=== PATIENT | female | born 1980 | race African-American/Black ===

== ENCOUNTER 2016-04-20 20:07 | Emergency (ER) | payer OTHER ==
[~2016-04-20] VITALS: Ht 162.6 cm; Wt 74.8 kg
[~2016-04-20 20:07] MED LIST: Acetaminophen/Hydrocodone Bi PO; FOLATE1 MG PO; KEFLEX250 MG PO; MOTRIN600 MG PO; MOTRIN800 MG PO; NORCO 10/325 MG1 TAB PO; OLANZAPINE5 MG PO; PRENATAL VITAMI1 T10 PO; VICODIN 5/500 M1 TAB PO; ZOFRAN ODT4 MG PO
[2016-04-20 20:48] VITALS: BP 136/70
[2016-04-20] MEDS ORDERED: ULTRAM50 MG PO (21:03)
[2016-04-20] MEDS ORDERED: NEURONTIN300 MG PO ×2 (21:03)
--- NOTE | 2016-04-20 21:40 | NUR ---
PATIENT AMBULATED TO BED 2.
--- NOTE | 2016-04-20 21:54 | NUR ---
35Y/F PATIENT PRESENTS TO ED WITH ABDOMINAL PAIN X 1 DAY . PT STATES ABDOMINLA PAIN WITH VAGINAL BLEEDING . DENIES N/V/D; SKIN IS PINK/WARM/DRY; AAOX4 WITH EVEN AND STEADY GAIT; LUNGS CLEAR BL; HR EVEN AND REGULAR; PT DENIES ANY FEVER, CP, SOB, OR COUGH AT THIS TIME; PATIENT STATES PAIN OF 7/10 AT THIS TIME; VSS; PATIENT POSITIONED FOR COMFORT; HOB ELEVATED; BEDRAILS UP X2; BED DOWN. ER MD MADE AWARE OF PT STATUS.
--- NOTE | 2016-04-20 21:55 | NUR ---
Patient being evaluated by physician at bedside.
[2016-04-20] MEDS ORDERED: NACL 0.9% 1,000 ML IV SCH (21:59)
[2016-04-20] MEDS ORDERED: ONDANSETRON 4 MG/2 ML VIAL IVP ONE (22:00)
--- NOTE | 2016-04-20 23:48 | NUR ---
Patient discharged with v/s stable. Written and verbal after care instructions given and explained. Patient alert, oriented and verbalized understanding of instructions. Ambulatory with steady gait. All questions addressed prior to discharge. ID band removed. Patient advised to follow up with PMD. Rx of TYLENOL 325MG given. Patient educated on indication of medication including possible reaction and side effects. Opportunity to ask questions provided and answered.
[2016-04-20 23:49] VITALS: BP 136/70
== END 2016-04-20 23:48 | disposition home or self-care (01) ==
LOC: MED 20:07
DX: O20.0 Threatened abortion (principal); O99.511 Diseases of the respiratory system complicating pregnancy, first trimester; J45.909 Unspecified asthma, uncomplicated; Z3A.12 12 weeks gestation of pregnancy
CPT/HCPCS: 36415; 76801; 80053; 81001; 81025; 82150; 83690; 84702; 85025; 86900; 86901; 87086; 96361; 96374; 99285; J2405; J7030

== ENCOUNTER 2016-07-25 21:25 | Observation (INO) | payer OTHER ==
[~2016-07-25] VITALS: Ht 160 cm; Wt 69.4 kg
[~2016-07-25 21:25] MED LIST changes: -FOLATE1 MG PO; +GABA300C PO; -KEFLEX250 MG PO; -MOTRIN600 MG PO; -MOTRIN800 MG PO; -NORCO 10/325 MG1 TAB PO; +OLAN5TAB30 PO; -OLANZAPINE5 MG PO; -PRENATAL VITAMI1 T10 PO; +TRAM50TA94 PO; -VICODIN 5/500 M1 TAB PO; -ZOFRAN ODT4 MG PO
== END 2016-07-25 23:20 | disposition home or self-care (01) ==
LOC: MLD 21:25
PROVIDERS: ADMIT Obstetrics & Gynecology; ATTEND Obstetrics & Gynecology
DX: Z34.92 Encounter for supervision of normal pregnancy, unspecified, second trimester (principal); Z3A.25 25 weeks gestation of pregnancy
CPT/HCPCS: 59025; 76805; 81000; G0378

== ENCOUNTER 2016-09-13 02:30 | Observation (INO) | payer OTHER ==
[~2016-09-13] VITALS: Ht 156.4 cm; Wt 72.6 kg
[~2016-09-13 02:30] MED LIST changes: -Acetaminophen/Hydrocodone Bi PO; -OLAN5TAB30 PO
[2016-09-13 03:20] VITALS: BP 97/55
[2016-09-13] MEDS ORDERED: TERBUTALINE 1 MG/ML VIAL SUBQ ONE (03:30)
[2016-09-13] MEDS: TERBUTALINE 1 MG/ML VIAL SUBQ SCH ×2 (04:04→04:56)
--- NOTE | 2016-09-13 10:42 | NUR ---
PATIENT HAS BEEN SCREENED AND CATEGORIZED LOW NUTRITION RISK. PATIENT WILL BE SEEN WITHIN 7 DAYS OF ADMISSION. 09/19/[address]
== END 2016-09-13 12:06 | disposition home or self-care (01) ==
LOC: MLD 02:30
PROVIDERS: ADMIT Obstetrics & Gynecology; ATTEND Obstetrics & Gynecology
DX: O26.893 Other specified pregnancy related conditions, third trimester (principal); R10.9 Unspecified abdominal pain; M54.9 Dorsalgia, unspecified; R11.0 Nausea; Z3A.32 32 weeks gestation of pregnancy
CPT/HCPCS: 76805; 96372; G0378; J3105; Q0092

== ENCOUNTER 2016-11-06 00:26 | Emergency (ER) | payer OTHER ==
[~2016-11-06] VITALS: Ht 162.6 cm; Wt 71.7 kg
[2016-11-06 00:28] VITALS: BP 112/79
--- NOTE | 2016-11-06 00:38 | NUR ---
TO ER [facility]
--- NOTE | 2016-11-06 00:39 | NUR ---
Patient being evaluated by physician at [facility].
[2016-11-06 00:55] VITALS: BP 112/79
--- NOTE | 2016-11-06 00:55 | NUR ---
Patient discharged with v/s stable. Written and verbal after care instructions given and explained. Patient alert, oriented and verbalized understanding of instructions. Ambulatory with steady gait. All questions addressed prior to discharge. ID band removed. Patient advised to follow up with PMD. Rx of Flagyl given. Patient educated on indication of medication including possible reaction and side effects. Opportunity to ask questions provided and answered.
== END 2016-11-06 00:55 | disposition home or self-care (01) ==
LOC: MED 00:26
DX: Z39.2 Encounter for routine postpartum follow-up (principal); N76.0 Acute vaginitis; J45.909 Unspecified asthma, uncomplicated
CPT/HCPCS: 99283